=== PATIENT | female | born 1950 ===

== ENCOUNTER 2018-04-22 02:09 | Inpatient (IN) | payer MEDICARE ==
[2018-04-22 02:57] LABS: MEAN CELL VOLUME 92.6 fl (81.0-99.0); MEAN CORPUSCULAR HEMOGLOBIN 30.3 pg (27.0-31.0); MEAN CORPUSCULAR HGB CONC 32.7 g/dL (33.0-37.0); RBC 4.28 Mil/uL (3.80-5.20); RED CELL DISTRIBUTION WIDTH 13.6 % (11.5-14.5); WHITE BLOOD COUNT 6.4 K/uL (4.8-10.8)
[2018-04-22 03:00] LABS: INR 0.9; PROTHROMBIN TIME 10.6 Seconds (9.8-13.1)
[2018-04-22 03:03] LABS: PARTIAL THROMBOPLASTIN TIME 30.5 Seconds (25.6-37.1)
[2018-04-22 03:05] LABS: ALB/GLOB RATIO 1.1 (1.0-2.1); ALT/SGPT 20 U/L (9-52); AST/SGOT 25 U/L (14-36); BILIRUBIN,DIRECT 0.2 mg/ml (0.0-0.4); BLOOD UREA NITROGEN 15 mg/dl (7-17); CALCIUM 9.3 mg/dL (8.4-10.2); GFR NON-AFRICAN AMERICAN > 60
[2018-04-22] MEDS ORDERED: Sodium Chloride 0.9% 50 ML IV ONE (03:23)
[2018-04-22] MEDS ORDERED: Iohexol 300 100 ML IJ ONE (03:23)
--- NOTE | 2018-04-22 03:25 | ED PDOC ---
HPI: General Adult Time Seen by Provider: 04/22/18 02:31 Chief Complaint (Nursing): GI Problem Chief Complaint (Provider): GI problem History Per: Patient History/Exam Limitations: no limitations Current Symptoms Are (Timing): Still Present Additional Complaint(s): 66 year old female, with no past medical history, presents with bright red blood per rectum and blood clots. Patient reports 3 episodes that happened less than 1 hour prior to arrival. She denies abdominal pain, dizziness, light headedness, or palpitations. She states she feels well otherwise. PMD: none provided Past Medical History Reviewed: Historical Data, Nursing Documentation, Vital Signs Vital Signs: Last Vital Signs Temp 98.5 F 04/22/18 02:20 Pulse 86 04/22/18 03:15 Resp 16 04/22/18 02:20 BP 164/91 H 04/22/18 02:39 Pulse Ox 96 04/22/18 02:39 - Medical History PMH: No Chronic Diseases - Surgical History Surgical History: No Surg Hx - Family History Family History: States: Unknown Family Hx - Home Medications Home Medications: Ambulatory Orders Medication Instructions Recorded No Known Home Med 04/22/18 - Allergies Allergies/Adverse Reactions: Allergies Allergy/AdvReac Type Severity Reaction Status Date / Time Penicillins Allergy ANAPHYLAXIS Verified 04/22/18 02:20 Review of Systems ROS Statement: Except As Marked, All Systems Reviewed And Found Negative Cardiovascular: Negative for: Palpitations Gastrointestinal: Positive for: Other (Bright red blood per rectum and blood clots). Negative for: Abdominal Pain Neurological: Negative for: Dizziness, Other (light headedness) Physical Exam - Reviewed Nursing Documentation Reviewed: Yes Vital Signs Reviewed: Yes - Physical Exam Appears: Positive for: Non-toxic, No Acute Distress Head Exam: Positive for: ATRAUMATIC, NORMOCEPHALIC Skin: Positive for: Normal Color, Warm, Dry Eye Exam: Positive for: Normal appearance Neck: Positive for: Normal, Painless ROM Cardiovascular/Chest: Positive for: Regular Rate, Rhythm Respiratory: Positive for: Normal Breath Sounds. Negative for: Wheezing, Respiratory Distress Gastrointestinal/Abdominal: Positive for: Normal Exam, Soft. Negative for: Ten derness Rectal: Positive for: Other (scant bright red blood) Neurologic/Psych: Positive for: Alert, Oriented. Negative for: Motor/Sensory Deficits Comments: Folder Tier was nurse Nata Delaney. - Laboratory Results Result Diagrams: 04/22/18 05:20 04/22/18 02:50 - ECG O2 Sat by Pulse Oximetry: 96 (RA) Pulse Ox Interpretation: Normal - Critical Care Total Time (In Min): 30 Documented Critical Care: Time excludes all time spent performint seperately billable procedures Medical Decision Making Medical Decision Making: A/P: Rectal bleeding in otherwise well appearing 66 y/o female. No signs of hemorrhoids or fissures. Possibly related to diverticulosis, angiodysplasia, ulcer disease, among others not listed. Initial Plan: --CT abd/pelvis --BMP --Liver profile stat --CBC --PTT --Prothrombin time --Protonix 40mg IV 04:47 CT abd/pelvis COMMENTS: 1 cm benign simple cyst of the right hepatic lobe. 0.8 Cm adherent sludge, noncalcified stone versus polyp in the fundus of the gallbladder. Diffuse colonic diverticulosis. Mild apparent thickening of the distal transverse and descending colon. The liver is of uniform attenuation without mass or defect. There is no intra or extrahepatic biliary ductal dilatation. The spleen is normal. The pancreas is of normal contour and attenuation characteristics. There is no evidence of adrenal mass. Both kidneys demonstrate prompt and equal nephrograms. The kidneys are normal in size, shape and configuration. There is no evidence of renal or ureteral mass. No renal or ureteral calculi are identified. There is no hydroureter or hydronephrosis. No evidence for appendicitis. No evidence for small or large bowel obstruction. There is no evidence of abdominal ascites or lymphadenopathy. There is no evidence of intrinsic or extrinsic bladder mass. There is no pelvic ascites or lymphadenopathy. Images of the lung bases show no evidence of pleural or parenchymal mass. There are no pleural effusions. The bony structures are free of lytic or blastic lesions. IMPRESSION: 1 cm benign simple cyst of the right hepatic lobe. 0.8 Cm adherent sludge, noncalcified stone versus polyp in the fundus of the gallbladder. Diffuse colonic diverticulosis. Mild apparent thickening of the distal transverse and descending colon. Inf ectious/inflammatory versus neoplastic pathology. 5:00 --Patient re-evaluated at bedside --Patient complaining now of dizziness, lightheadedness --Patient became diffusely diaphoretic, pale, and BP dropped to 100/60 and became tachycardic --2nd IV line placed and 3rd CBC drawn, Type and Screen sent, patient's consented --Dr. Shaw aware of patient, recommends transfusion --Dr. Branch aware, will admit to ICU --Will obtain surgical consult as per recommendations of Dr. Shaw -- Scribe Attestation: Documented by Yohan Keller acting as a scribe for Syed Canseco MD. Provider Scribe Attestation: All medical record entries made by the Scribe were at my direction and personally dictated by me. I have reviewed the chart and agree that the record accurately reflects my personal performance of the history, physical exam, medical decision making, and the department course for this patient. I have also personally directed, reviewed, and agree with the discharge instructions and disposition. Disposition - Clinical Impression Clinical Impression: GI bleed - Patient ED Disposition Is Patient to be Admitted: Yes - Disposition Disposition Time: 05:00 Condition: SERIOUS
[2018-04-22 05:04] LABS: HEMOGLOBIN 12.3 g/dL (12.0-16.0); MEAN CELL VOLUME 92.1 fl (81.0-99.0); MEAN CORPUSCULAR HGB CONC 33.7 g/dL (33.0-37.0); RBC 3.97 Mil/uL (3.80-5.20); RED CELL DISTRIBUTION WIDTH 13.7 % (11.5-14.5); WHITE BLOOD COUNT 8.9 K/uL (4.8-10.8)
[2018-04-22] MEDS ORDERED: Sodium Chloride 0.9% 1,000 ML IV STA (05:22)
[2018-04-22 05:45] LABS: HEMOGLOBIN 11.6 g/dL (12.0-16.0); MEAN CELL VOLUME 92.2 fl (81.0-99.0); MEAN CORPUSCULAR HEMOGLOBIN 30.5 pg (27.0-31.0); MEAN CORPUSCULAR HGB CONC 33.1 g/dL (33.0-37.0); RBC 3.8 Mil/uL (3.80-5.20); RED CELL DISTRIBUTION WIDTH 13.5 % (11.5-14.5); WHITE BLOOD COUNT 8.9 K/uL (4.8-10.8)
--- NOTE | 2018-04-22 06:05 | CP.PCM.CON ---
History of Present Illness - History of Present Illness History of Present Illness: SURGERY CONSULT NOTE FOR DR. ALBRIGHT Reason for consult: GI bleed 66F presents to the emergency department for GI bleed which started yesterday. Patient states she never had this type of bleeding before. She states the pain was not associated with bowel movements. She denies nausea, vomiting, fevers or chills. She denies any abdominal pain. She states she had multiple episodes of blood per rectum. While in the emergency department she had one episode of hypotension which resolved with fluid bolus. PMH: denies PSH: hysterectomy Social: denies tobacco, alcohol, illicit drug Allergies: Penicillins Past Patient History - Past Social History Smoking Status: Never Smoked - PSYCHIATRIC Hx Substance Use: No - SURGICAL HISTORY Hx Surgeries: Yes Hx Hysterectomy: Yes - ANESTHESIA Hx Anesthesia: Yes Hx Anesthesia Reactions: No Hx Malignant Hyperthermia: No Meds Allergies/Adverse Reactions: Allergies Allergy/AdvReac Type Severity Reaction Status Date / Time Penicillins Allergy ANAPHYLAXIS Verified 04/22/18 02:20 - Medications Medications: Current Medications Sodium Chloride (Sodium Chloride 0.9%) 1,000 mls @ 1,000 mls/hr IV .Q1H ST[facility] Stop: 04/22/18 06:21 Last Admin: 04/22/18 05:34 Dose: 1,000 mls/hr Physical Exam - Constitutional Appears: Non-toxic, No Acute Distress - Eye Exam Eye Exam: EOMI, PERRL - ENT Exam ENT Exam: Mucous Membranes Moist - Respiratory Exam Respiratory Exam: Clear to Auscultation Bilateral, NORMAL BREATHING PATTERN - Cardiovascular Exam Cardiovascular Exam: REGULAR RHYTHM, +S1, +S2 - GI/Abdominal Exam GI & Abdominal Exam: Soft. absent: Distended, Firm, Guarding, Rebound, Rigid, Tenderness - Rectal Exam Rectal Exam: Bloody Stool. absent: Hemorrhoids, Fecal Impaction - Extremities Exam Extremities exam: Negative for: tenderness - Neurological Exam Neurological exam: Alert, Oriented x3 - Skin Skin Exam: Dry, Intact, Normal Color, Warm Results - Vital Signs Recent Vital Signs: Last Vital Signs Temp 98.5 F 04/22/18 02:20 Pulse 80 04/22/18 05:55 Resp 16 04/22/18 05:55 BP 130/76 04/22/18 05:55 Pulse Ox 95 04/22/18 05:55 - Labs Result Diagrams: 04/22/18 05:20 04/22/18 02:50 Labs: Laboratory Results - last 24 hr 04/22/18 04/22/18 04/22/18 02:50 02:50 02:50 WBC 6.4 RBC 4.28 Hgb 13.0 Hct 39.6 MCV 92.6 MCH 30.3 MCHC 32.7 L RDW 13.6 Plt Count 245 PT 10.6 INR 0.9 APTT 30.5 Sodium 138 Potassium 4.2 Chloride 106 Carbon Dioxide 28 Anion Gap 8 L BUN 15 Creatinine 0.6 L Est GFR ( Amer) > 60 Est GFR (Non-Af Amer) > 60 Random Glucose 112 H Calcium 9.3 Total Bilirubin 0.3 Direct Bilirubin 0.2 AST 25 ALT 20 Alkaline Phosphatase 83 Total Protein 7.6 Albumin 4.0 Globulin 3.6 Albumin/Globulin Ratio 1.1 04/22/18 04/22/18 04:58 05:20 WBC 8.9 8.9 RBC 3.97 3.80 Hgb 12.3 11.6 L Hct 36.6 35.0 MCV 92.1 92.2 MCH 31.0 30.5 MCHC 33.7 33.1 RDW 13.7 13.5 Plt Count 239 251 PT INR APTT Sodium Potassium Chloride Carbon Dioxide Anion Gap BUN Creatinine Est GFR ( Amer) Est GFR (Non-Af Amer) Random Glucose Calcium Total Bilirubin Direct Bilirubin AST ALT Alkaline Phosphatase Total Protein Albumin Globulin Albumin/Globulin Ratio Assessment & Plan - Assessment and Plan (Free Text) Assessment: 66F with GI bleed from colonic diverticulosis Plan: - NPO - IVF - Monitor for continues blood per rectum - Monitor CBC - GI consult, recommend colonoscopy - Will continue to follow patient Discussed with Dr. Nuria Rodriguez, PGY3
--- NOTE | 2018-04-22 06:17 | CP.PCM.HP ---
History of Present Illness - History of Present Illness History of Present Illness: PMD: None Chief Complaint: Bright red blood per rectum The patient was seen and examined in the ED with her present HPI: This is a 66 years old female with no significant past medical hx comes with sudden unset of non tender bloody stool with clots. She had 3 episodes at home in less than one hour and continued in the ED. She referred mild dizziness later in the ED. but no SOB, chest Pain, palpitation, abdominal pain nor previous episode of blood in stool. PMH: No chronic disease PSH: Hysterectomy; Appendectomy; dehiscence of surgical wound SH: No Illegal drug use; no Alcohol; never smoked; Live with FH: State: No known family Hx Allergies: NKDA Medication: Denies Use Present on Admission - Present on Admission Any Indicators Present on Admission: No History of DVT/PE: No History of Uncontrolled Diabetes: No Urinary Catheter: No Decubitus Ulcer Present: No Review of Systems - Constitutional Constitutional: absent: Anorexia, Chills, Fever, Headache, Lethargy - EENT Eyes: absent: Blurred Vision, Diplopia, Floaters, Requires Corrective Lenses Ears: absent: Decreased Hearing, Ear Discharge, Ear Pain, Tinnitus Nose/Mouth/Throat: absent: Epistaxis, Nasal Congestion, Sinus Pain, Sinus Pressure - Cardiovascular Cardiovascular: absent: Chest Pain, Dyspnea, Edema - Respiratory Respiratory: absent: Cough, Dyspnea, Wheezing, Stridor - Gastrointestinal Gastrointestinal: Hematochezia. absent: Abdominal Pain, Constipation, Diarrhea, Nausea, Vomiting - Genitourinary Genitourinary: absent: Dysuria, Flank Pain, Hematuria, Urinary Frequency - Musculoskeletal Musculoskeletal: absent: Arthralgias, Muscle Cramps, Muscle Weakness, Myalgias - Integumentary Integumentary: absent: Pruritus, Rash, Skin Ulcer, Sores, Striae, Swelling - Neurological Neurological: Dizziness. absent: Confusion, Focal Weakness, Weakness - Psychiatric Psychiatric: absent: Anxiety, Depression, Panic Attacks - Endocrine Endocrine: absent: Palpitations, Polydipsia, Polyphagia, Polyuria - Hematologic/Lymphatic Hematologic: absent: Easy Bleeding, Easy Bruising Past Patient History - Past Medical History & Family History Past Medical History?: No - Past Social History Smoking Status: Never Smoked Chewing Tobacco Use: No Cigar Use: No Alcohol: None Drugs: Denies, Inhalants Home Situation {Lives}: With Family - CARDIAC Hx Cardiac Disorders: No - PULMONARY Hx Respiratory Disorders: No - NEUROLOGICAL Hx Neurological Disorder: No - HEENT Hx HEENT Problems: No - RENAL Hx Chronic Kidney Disease: No - ENDOCRINE/METABOLIC Hx Endocrine Disorders: No - HEMATOLOGICAL/ONCOLOGICAL Hx Blood Disorders: No - INTEGUMENTARY Hx Dermatological Problems: No - MUSCULOSKELETAL/RHEUMATOLOGICAL Hx Musculoskeletal Disorders: Yes Other/Comment: Pain to right shoulder - GENITOURINARY/GYNECOLOGICAL Hx Genitourinary Disorders: No - PSYCHIATRIC Hx Psychophysiologic Disorder: No Hx Substance Use: No - SURGICAL HISTORY Hx Surgeries: Yes Hx Appendectomy: Yes Hx Hysterectomy: Yes - ANESTHESIA Hx Anesthesia: Yes Hx Anesthesia Reactions: No Hx Malignant Hyperthermia: No Meds Allergies/Adverse Reactions: Allergies Allergy/AdvReac Type Severity Reaction Status Date / Time Penicillins Allergy ANAPHYLAXIS Verified 04/22/18 02:20 Physical Exam - Constitutional Appears: No Acute Distress - Head Exam Head Exam: ATRAUMATIC, NORMAL INSPECTION, NORMOCEPHALIC - Eye Exam Eye Exam: EOMI Pupil Exam: NORMAL ACCOMODATION, PERRL - ENT Exam ENT Exam: Mucous Membranes Moist, Normal Exam, Normal External Ear Exam - Neck Exam Neck exam: Positive for: Full Rom, Normal Inspection. Negative for: Lymphadenopathy, Tenderness - Respiratory Exam Respiratory Exam: Clear to Auscultation Bilateral. absent: Rales, Rhonchi, Wheezes - Cardiovascular Exam Cardiovascular Exam: REGULAR RHYTHM, RRR, +S1, +S2. absent: Gallop - GI/Abdominal Exam GI & Abdominal Exam: Normal Bowel Sounds, Soft. absent: Mass, Organomegaly, Tenderness - Rectal Exam Rectal Exam: Bloody Stool - Extremities Exam Extremities exam: Positive for: full ROM, normal inspection. Negative for: calf tenderness, pedal edema - Back Exam Back exam: NORMAL INSPECTION. absent: CVA tenderness (L), CVA tenderness (R) - Neurological Exam Neurological exam: Alert, CN II-XII Intact, Oriented x3, Reflexes Normal - Psychiatric Exam Psychiatric exam: Normal Affect, Normal Mood - Skin Skin Exam: Dry, Intact, Normal Color, Warm Results - Vital Signs Recent Vital Signs: Last Vital Signs Temp 98.5 F 04/22/18 02:20 Pulse 75 04/22/18 06:10 Resp 21 04/22/18 06:10 BP 139/70 04/22/18 06:10 Pulse Ox 99 04/22/18 06:10 - Labs Result Diagrams: 04/22/18 05:20 04/22/18 02:50 Labs: Laboratory Results - last 24 hr 04/22/18 04/22/18 04/22/18 02:50 02:50 02:50 WBC 6.4 RBC 4.28 Hgb 13.0 Hct 39.6 MCV 92.6 MCH 30.3 MCHC 32.7 L RDW 13.6 Plt Count 245 PT 10.6 INR 0.9 APTT 30.5 Sodium 138 Potassium 4.2 Chloride 106 Carbon Dioxide 28 Anion Gap 8 L BUN 15 Creatinine 0.6 L Est GFR ( Amer) > 60 Est GFR (Non-Af Amer) > 60 Random Glucose 112 H Calcium 9.3 Total Bilirubin 0.3 Direct Bilirubin 0.2 AST 25 ALT 20 Alkaline Phosphatase 83 Total Protein 7.6 Albumin 4.0 Globulin 3.6 Albumin/Globulin Ratio 1.1 04/22/18 04/22/18 04:58 05:20 WBC 8.9 8.9 RBC 3.97 3.80 Hgb 12.3 11.6 L Hct 36.6 35.0 MCV 92.1 92.2 MCH 31.0 30.5 MCHC 33.7 33.1 RDW 13.7 13.5 Plt Count 239 251 PT INR APTT Sodium Potassium Chloride Carbon Dioxide Anion Gap BUN Creatinine Est GFR ( Amer) Est GFR (Non-Af Amer) Random Glucose Calcium Total Bilirubin Direct Bilirubin AST ALT Alkaline Phosphatase Total Protein Albumin Globulin Albumin/Globulin Ratio - Imaging and Cardiology CT scan - abdomen Status: Report reviewed by me Additional comment: CT abd/pelvis COMMENTS: 1 cm benign simple cyst of the right hepatic lobe. 0.8 Cm adherent sludge, noncalcified stone versus polyp in the fundus of the gallbladder. Diffuse colonic diverticulosis. Mild apparent thickening of the distal transverse and descending colon. The liver is of uniform attenuation without mass or defect. There is no intra or extrahepatic biliary ductal dilatation. The spleen is normal. The pancreas is of normal contour and attenuation characteristics. There is no evidence of adrenal mass. Both kidneys demonstrate prompt and equal nephrograms. The kidneys are normal in size, shape and configuration. There is no evidence of renal or ureteral mass. No renal or ureteral calculi are identified. There is no hydroureter or hydronephrosis. No evidence for appendicitis. No evidence for small or large bowel obstruction. There is no evidence of abdominal ascites or lymphadenopathy. There is no evidence of intrinsic or extrinsic bladder mass. There is no pelvic ascites or lymphadenopathy. Images of the lung bases show no evidence of pleural or parenchymal mass. There are no pleural effusions. The bony structures are free of lytic or blastic lesions. IMPRESSION: 1 cm benign simple cyst of the right hepatic lobe. 0.8 Cm adherent sludge, noncalcified stone versus polyp in the fundus of the gallbladder. Diffuse colonic diverticulosis. Mild apparent thickening of the distal transverse and descending colon. Infectious/inflammatory versus neoplastic pathology. Assessment & Plan - Assessment and Plan (Free Text) Assessment: #. Lower GI bleed Plan: 66 years old female with no significant past medical hx comes with sudden unset of non tender bloody stool with clots. She had 3 episodes at home in less than one hour and continued in the ED. She referred mild dizziness later in the ED. but no SOB, chest Pain, palpitation, abdominal pain nor previous episode of blood in Stool. #. Lower GI bleed etiology unclear. Consider internal hemorrhoides but most likely caused by Diverticular bleed CT Abd/pelvis: Diffuse Colonic Diverticulosis - Consult Dr Shaw GI - Consult Surgery Dr Quiñones - Admit to ICU - H&H Q4 hours - Type and cross PRBC Transfuse if HB falls below 10g/dl - IV Fluid Ringer,s Lactate #. DVT Prophylaxis with SCD #. Code Status: Full: - Date & Time Date: 04/22/18 Time: 06:17
[2018-04-22] MEDS: Lactated Ringer's 1,000 ML IV SCH ×3 (07:29→23:49)
--- NOTE | 2018-04-22 10:21 | CT ---
Date of service: 04/22/2018 PROCEDURE: CT Abdomen and Pelvis with and without intravenous contrast HISTORY: rectal bleeding COMPARISON: None. TECHNIQUE: Axial images of the abdomen were obtained in the pre contrast, portal venous and delayed phases of enhancement. Coronal and sagittal reformats were generated. Contrast dose: Radiation dose: Total exam DLP = 419.5 mGy-cm. This CT exam was performed using one or more of the following dose reduction techniques: Automated exposure control, adjustment of the mA and/or kV according to patient size, and/or use of iterative reconstruction technique. FINDINGS: LOWER THORAX: Unremarkable. LIVER: Unremarkable. No gross lesion or ductal dilatation. GALLBLADDER AND BILE DUCTS: 8 millimeter gallbladder polyp versus adherent stone PANCREAS: Unremarkable. No gross lesion or ductal dilatation. SPLEEN: Unremarkable. ADRENALS: Unremarkable. No mass. KIDNEYS AND URETERS: Unremarkable. No hydronephrosis. No solid mass. VASCULATURE: Unremarkable. No aortic aneurysm. No aortic atherosclerotic calcification or mural plaque present. BOWEL: Sigmoid colon diverticulosis. No obstruction. No gross mural thickening. APPENDIX: Normal appendix. PERITONEUM: Unremarkable. No free fluid. No free air. LYMPH NODES: Unremarkable. No enlarged lymph nodes. BLADDER: Unremarkable. REPRODUCTIVE: Unremarkable. BONES: No acute fracture. OTHER FINDINGS: None. IMPRESSION: 8 millimeter gallbladder polyp versus adherent stone sigmoid colon diverticulosis.
[2018-04-22 14:05] LABS: HEMOGLOBIN 10.3 g/dL (12.0-16.0); MEAN CELL VOLUME 92.4 fl (81.0-99.0); MEAN CORPUSCULAR HEMOGLOBIN 30.4 pg (27.0-31.0); MEAN CORPUSCULAR HGB CONC 32.9 g/dL (33.0-37.0); RBC 3.39 Mil/uL (3.80-5.20); RED CELL DISTRIBUTION WIDTH 13.4 % (11.5-14.5); WHITE BLOOD COUNT 6.7 K/uL (4.8-10.8)
[2018-04-22 14:16] LABS: ALBUMIN 2.9 g/dL (3.5-5.0); ALT/SGPT 27 U/L (9-52); AST/SGOT 21 U/L (14-36); BLOOD UREA NITROGEN 11 mg/dl (7-17); CALCIUM 8.4 mg/dL (8.4-10.2); GFR NON-AFRICAN AMERICAN > 60
--- NOTE | 2018-04-22 14:19 | CP.PCM.CON ---
History of Present Illness - History of Present Illness History of Present Illness: 66 yo female coming to ER after bleeding bright red blood per rectum. In ER had another episode of blleding and her P dropped. Review of Systems - Constitutional Constitutional: absent: Chills - EENT Eyes: absent: Blurred Vision Ears: absent: Ear Pain Nose/Mouth/Throat: absent: Epistaxis - Cardiovascular Cardiovascular: absent: Chest Pain - Respiratory Respiratory: absent: Cough - Gastrointestinal Gastrointestinal: Hematochezia. absent: Abdominal Pain - Genitourinary Genitourinary: absent: Change in Urinary Stream Past Patient History - Past Medical History & Family History Past Medical History?: No - Past Social History Smoking Status: Never Smoked - CARDIAC Hx Cardiac Disorders: No - PULMONARY Hx Respiratory Disorders: No - NEUROLOGICAL Hx Neurological Disorder: No - HEENT Hx HEENT Problems: No - RENAL Hx Chronic Kidney Disease: No - ENDOCRINE/METABOLIC Hx Endocrine Disorders: No - HEMATOLOGICAL/ONCOLOGICAL Hx AIDS: No Hx Human Immunodeficiency Virus (HIV): No - INTEGUMENTARY Hx Dermatological Problems: No - MUSCULOSKELETAL/RHEUMATOLOGICAL Hx Falls: No - GASTROINTESTINAL Hx Gastrointestinal Disorders: No - GENITOURINARY/GYNECOLOGICAL Hx Genitourinary Disorders: No - PSYCHIATRIC Hx Substance Use: No - SURGICAL HISTORY Hx Surgeries: Yes Hx Appendectomy: Yes Hx Hysterectomy: Yes - ANESTHESIA Hx Anesthesia: Yes Hx Anesthesia Reactions: No Hx Malignant Hyperthermia: No Meds Allergies/Adverse Reactions: Allergies Allergy/AdvReac Type Severity Reaction Status Date / Time Penicillins Allergy ANAPHYLAXIS Verified 04/22/18 02:20 - Medications Medications: Current Medications Lactated Ringer's (Lactated Ringer's) 1,000 mls @ 125 mls/hr IV .Q8H [facility] Last Admin: 04/22/18 07:29 Dose: 125 mls/hr Desmopressin Acetate 21 mcg/ (Sodium Chloride) 55.25 mls @ 110.5 mls/hr IVPB ONCE ONE Stop: 04/22/18 15:29 Pantoprazole Sodium (Protonix Inj) 40 mg IVP Q12 [facility] Physical Exam - Head Exam Head Exam: ATRAUMATIC - Eye Exam Eye Exam: Normal appearance Pupil Exam: PERRL - ENT Exam ENT Exam: Normal Exam - Neck Exam Neck exam: Positive for: Full Rom - Respiratory Exam Respiratory Exam: Clear to Auscultation Bilateral - Cardiovascular Exam Cardiovascular Exam: REGULAR RHYTHM, +S1, +S2 - GI/Abdominal Exam GI & Abdominal Exam: Normal Bowel Sounds, Soft. absent: Tenderness Results - Vital Signs Recent Vital Signs: Last Vital Signs Temp 98 F 04/22/18 12:00 Pulse 68 04/22/18 12:00 Resp 14 04/22/18 12:00 BP 119/67 04/22/18 12:00 Pulse Ox 100 04/22/18 12:00 - Labs Result Diagrams: 04/22/18 13:57 04/22/18 02:50 Labs: Laboratory Results - last 24 hr 04/22/18 04/22/18 04/22/18 02:50 02:50 02:50 WBC 6.4 RBC 4.28 Hgb 13.0 Hct 39.6 MCV 92.6 MCH 30.3 MCHC 32.7 L RDW 13.6 Plt Count 245 PT 10.6 INR 0.9 APTT 30.5 Sodium 138 Potassium 4.2 Chloride 106 Carbon Dioxide 28 Anion Gap 8 L BUN 15 Creatinine 0.6 L Est GFR ( Amer) > 60 Est GFR (Non-Af Amer) > 60 Random Glucose 112 H Calcium 9.3 Total Bilirubin 0.3 Direct Bilirubin 0.2 AST 25 ALT 20 Alkaline Phosphatase 83 Total Protein 7.6 Albumin 4.0 Globulin 3.6 Albumin/Globulin Ratio 1.1 Blood Type Blood Type Confirm Antibody Screen Crossmatch BBK History Checked 04/22/18 04/22/18 04/22/18 04:58 05:20 05:20 WBC 8.9 8.9 RBC 3.97 3.80 Hgb 12.3 11.6 L Hct 36.6 35.0 MCV 92.1 92.2 MCH 31.0 30.5 MCHC 33.7 33.1 RDW 13.7 13.5 Plt Count 239 251 PT INR APTT Sodium Potassium Chloride Carbon Dioxide Anion Gap BUN Creatinine Est GFR ( Amer) Est GFR (Non-Af Amer) Random Glucose Calcium Total Bilirubin Direct Bilirubin AST ALT Alkaline Phosphatase Total Protein Albumin Globulin Albumin/Globulin Ratio Blood Type O POSITIVE Blood Type Confirm Antibody Screen Negative Crossmatch See Detail BBK History Checked No verified bt 04/22/18 04/22/18 08:05 13:57 WBC 6.7 RBC 3.39 L Hgb 10.3 L Hct 31.3 L MCV 92.4 MCH 30.4 MCHC 32.9 L RDW 13.4 Plt Count 199 PT INR APTT Sodium Potassium Chloride Carbon Dioxide Anion Gap BUN Creatinine Est GFR ( Amer) Est GFR (Non-Af Amer) Random Glucose Calcium Total Bilirubin Direct Bilirubin AST ALT Alkaline Phosphatase Total Protein Albumin Globulin Albumin/Globulin Ratio Blood Type Blood Type Confirm O POSITIVE Antibody Screen Crossmatch BBK History Checked - Imaging and Cardiology CT scan - abdomen Status: Report reviewed by me Assessment & Plan (1) GI bleed Assessment and Plan: Likely diverticular bleed. No current active bleed given. Will give DDAVP. Surgery is involved. follow clinically. Status: Acute
[2018-04-22] MEDS ORDERED: Desmopressin 4 mcg/ml Inj (1 ml) IVPB ONE (14:30)
--- NOTE | 2018-04-22 14:41 | CARD ---
APPROVED REPORT Date of service: 04/22/2018 EKG Measurement Heart [id number] <Conclusion> Normal sinus rhythm Nonspecific T wave abnormality Abnormal ECG
--- NOTE | 2018-04-23 07:18 | CP.PCM.PN ---
Subjective - Date & Time of Evaluation Date of Evaluation: 04/23/18 Time of Evaluation: 07:16 - Subjective Subjective: SURGERY NOTE FOR DR. ALBRIGHT 66F seen and examined at bedside. Patient denies abdominal pain, denies nausea, vomiting, she continues to deny bloody bowel movements. Objective - Vital Signs/Intake and Output Vital Signs (last 24 hours): Temp Pulse Resp BP Pulse Ox 98.4 F 62 12 114/54 L 100 04/23/18 00:00 04/23/18 04:00 04/23/18 04:00 04/23/18 04:00 04/23/18 04:00 Intake and Output: 04/23/18 04/23/18 06:59 18:59 Intake Total 1450 Balance 1450 - Medications Medications: Current Medications Lactated Ringer's (Lactated Ringer's) 1,000 mls @ 125 mls/hr IV .Q8H [facility] Last Admin: 04/22/18 23:49 Dose: 125 mls/hr Pantoprazole Sodium (Protonix Inj) 40 mg IVP Q12 [facility] Last Admin: 04/22/18 20:37 Dose: 40 mg - Labs Labs: 04/22/18 13:57 04/22/18 13:57 PT 10.6 Seconds (9.8-13.1) 04/22/18 02:50 INR 0.9 04/22/18 02:50 APTT 30.5 Seconds (25.6-37.1) 04/22/18 02:50 - Constitutional Appears: Non-toxic, No Acute Distress - Respiratory Exam Respiratory Exam: Clear to Ausculation Bilateral, NORMAL BREATHING PATTERN - Cardiovascular Exam Cardiovascular Exam: REGULAR RHYTHM, +S1, +S2 - GI/Abdominal Exam GI & Abdominal Exam: Soft. absent: Distended, Firm, Guarding, Rigid, Tenderness, Rebound - Neurological Exam Neurological Exam: Alert, Awake - Skin Skin Exam: Dry, Intact, Normal Color, Warm Assessment and Plan - Assessment and Plan (Free Text) Assessment: 66F with GI bleed resolving Plan: - recommend colonoscopy - GI bleeding scan - NPO - IVF - Continue to monitor for further bleed Further recs discuss with Dr. Nuria Rodriguez, PGY3
--- NOTE | 2018-04-23 08:53 | CP.PCM.PN ---
Subjective - Date & Time of Evaluation Date of Evaluation: 04/23/18 Time of Evaluation: 08:51 - Subjective Subjective: Patient appears well. No observed GI bleeding. Objective - Vital Signs/Intake and Output Vital Signs (last 24 hours): Temp Pulse Resp BP Pulse Ox 98.3 F 70 17 139/65 95 04/23/18 08:00 04/23/18 08:00 04/23/18 08:00 04/23/18 08:00 04/23/18 08:00 Intake and Output: 04/23/18 04/23/18 06:59 18:59 Intake Total 1450 Balance 1450 - Medications Medications: Current Medications Lactated Ringer's (Lactated Ringer's) 1,000 mls @ 125 mls/hr IV .Q8H [facility] Last Admin: 04/22/18 23:49 Dose: 125 mls/hr Pantoprazole Sodium (Protonix Inj) 40 mg IVP Q12 [facility] Last Admin: 04/22/18 20:37 Dose: 40 mg - Labs Labs: 04/22/18 13:57 04/22/18 13:57 PT 10.6 Seconds (9.8-13.1) 04/22/18 02:50 INR 0.9 04/22/18 02:50 APTT 30.5 Seconds (25.6-37.1) 04/22/18 02:50 - Head Exam Head Exam: ATRAUMATIC - Eye Exam Eye Exam: Normal appearance - ENT Exam ENT Exam: Normal Exam - Respiratory Exam Respiratory Exam: Clear to Ausculation Bilateral - Cardiovascular Exam Cardiovascular Exam: REGULAR RHYTHM, +S1, +S2 - GI/Abdominal Exam GI & Abdominal Exam: Soft, Normal Bowel Sounds. absent: Tenderness Assessment and Plan (1) GI bleed Assessment & Plan: Likely diverticular bleed. No active bleeding. Will do flex sig later today to try and differentiate between right and left sided bleed. Status: Acute
[2018-04-23 10:05] LABS: HEMOGLOBIN 9.8 g/dL (12.0-16.0); MEAN CELL VOLUME 92.9 fl (81.0-99.0); MEAN CORPUSCULAR HEMOGLOBIN 30.8 pg (27.0-31.0); MEAN CORPUSCULAR HGB CONC 33.2 g/dL (33.0-37.0); RBC 3.16 Mil/uL (3.80-5.20); RED CELL DISTRIBUTION WIDTH 13.7 % (11.5-14.5); WHITE BLOOD COUNT 5.4 K/uL (4.8-10.8)
[2018-04-23 10:14] LABS: BLOOD UREA NITROGEN 10 mg/dl (7-17); CALCIUM 8.4 mg/dL (8.4-10.2); GFR NON-AFRICAN AMERICAN > 60
--- NOTE | 2018-04-23 10:46 | CP.PCM.PN ---
<Lashanda Keller - Last Filed: 04/23/18 13:45> Subjective - Date & Time of Evaluation Date of Evaluation: 04/23/18 Time of Evaluation: 10:43 - Subjective Subjective: The patient was seen and examined at bedside. Patient denies any abdominal tenderness. Denies any acute overnight events. Admits to bloody bowel movement. Denies weakness. Denies SOB, chest Pain, palpitation, abdominal pain. Objective - Vital Signs/Intake and Output Vital Signs (last 24 hours): Temp Pulse Resp BP Pulse Ox 98.3 F 70 17 139/65 95 04/23/18 08:00 04/23/18 08:00 04/23/18 08:00 04/23/18 08:00 04/23/18 08:00 Intake and Output: 04/23/18 04/23/18 06:59 18:59 Intake Total 1450 125 Balance 1450 125 - Medications Medications: Current Medications Lactated Ringer's (Lactated Ringer's) 1,000 mls @ 125 mls/hr IV [facility]H [facility] Last Admin: 04/22/18 23:49 Dose: 125 mls/hr Pantoprazole Sodium (Protonix Inj) 40 mg IVP Q12 [facility] Last Admin: 04/23/18 09:48 Dose: 40 mg Sodium Phosphate (Fleet Enema) 135 ml MO ONCE ONE Stop: 04/23/18 11:01 Sodium Phosphate (Fleet Enema) 135 ml MO ONCE ONE Stop: 04/23/18 13:01 - Labs Labs: 04/23/18 09:15 04/23/18 09:15 PT 10.6 Seconds (9.8-13.1) 04/22/18 02:50 INR 0.9 04/22/18 02:50 APTT 30.5 Seconds (25.6-37.1) 04/22/18 02:50 - Constitutional Appears: Well, Non-toxic, No Acute Distress - Head Exam Head Exam: ATRAUMATIC, NORMOCEPHALIC - Eye Exam Eye Exam: EOMI, Normal appearance Pupil Exam: NORMAL ACCOMODATION - ENT Exam ENT Exam: Mucous Membranes Moist - Respiratory Exam Respiratory Exam: Clear to Ausculation Bilateral, NORMAL BREATHING PATTERN - Cardiovascular Exam Cardiovascular Exam: REGULAR RHYTHM, +S1, +S2 - GI/Abdominal Exam GI & Abdominal Exam: Normal Bowel Sounds - Neurological Exam Neurological Exam: Alert, Awake - Psychiatric Exam Psychiatric exam: Normal Affect Assessment and Plan - Assessment and Plan (Free Text) Assessment: 66 years old female with no significant past medical hx comes with sudden unset of non tender bloody stool with clots. She had 3 episodes at home in less than one hour and continued in the ED. She referred mild dizziness later in the ED. but no SOB, chest Pain, palpitation, abdominal pain nor previous episode of blood in Stool. Plan: Lower GI bleed etiology unclear. Consider internal hemorrhoides but most likely caused by Diverticular bleed -CT Abd/pelvis: Diffuse Colonic Diverticulosis - Consult Dr Shaw GI - recommendations appreciated; flex sig later today (04/23) - Consult Surgery Dr Quiñones; recommendations appreciated; - GI bleeding scan: ordered - H&H 13.0/39.6(on admission)-- 9.8/29.4(today) - Type and cross PRBC Transfuse if HB falls below 10g/dl - IV Fluid Ringers Lactate DVT Prophylaxis -SCD Diet: -NPO Code Status: -Full <Sita Ang - Last Filed: 04/23/18 17:28> Objective - Vital Signs/Intake and Output Vital Signs (last 24 hours): Temp Pulse Resp BP Pulse Ox 98.2 F 80 18 134/67 96 04/23/18 16:00 04/23/18 16:00 04/23/18 16:00 04/23/18 16:00 04/23/18 16:00 Intake and Output: 04/23/18 04/23/18 06:59 18:59 Intake Total 1450 625 Output Total 200 Balance 1450 425 - Medications Medications: Current Medications Lactated Ringer's (Lactated Ringer's) 1,000 mls @ 125 mls/hr IV [facility]H [facility] Last Admin: 04/22/18 23:49 Dose: 125 mls/hr Pantoprazole Sodium (Protonix Inj) 40 mg IVP Q12 [facility] Last Admin: 04/23/18 09:48 Dose: 40 mg - Labs Labs: 04/23/18 09:15 04/23/18 09:15 PT 10.6 Seconds (9.8-13.1) 04/22/18 02:50 INR 0.9 04/22/18 02:50 APTT 30.5 Seconds (25.6-37.1) 04/22/18 02:50 Attending/Attestation - Attestation I have personally seen and examined this patient.: Yes I have fully participated in the care of the patient.: Yes I have reviewed all pertinent clinical information, including history, physical exam and plan: Yes Notes (Text): Lower GI Bleed poss Diverticular Bleed Acute Blood Loss Anemia - monitor CBC - Plan for Flexible Sigmoidoscopy by Dr Shaw today
[2018-04-23] MEDS: Lactated Ringer's 1,000 ML IV SCH (14:44)
--- NOTE | 2018-04-23 15:29 | NM ---
Date of service: 04/22/2018 PROCEDURE: Nuclear medicine gastrointestinal bleeding scan. HISTORY: lower GI bleed COMPARISON: None available. TECHNIQUE: 4ccof patient blood was withdrawn and mixed with 24.8mCi of technetium ultra tagged. Flow phase images were acquired at 2 sec intervals for 40 sec. Subsequently, images of the abdomen and pelvis were obtained in the anterior projection at 1 min intervals over a period of 60 min. FINDINGS: No abnormal extravasation of tracer was observed throughout the exam to indicate active bleeding within or outside the gastrointestinal tract. Physiologic activity was seen in the heart, liver, spleen and blood vessels. IMPRESSION: No evidence of active gastrointestinal bleeding.
[2018-04-24 04:47] VITALS: TEMP 97.6
[2018-04-24 05:38] LABS: HEMOGLOBIN 9.8 g/dL (12.0-16.0); MEAN CELL VOLUME 91.6 fl (81.0-99.0); MEAN CORPUSCULAR HGB CONC 33.9 g/dL (33.0-37.0); RBC 3.15 Mil/uL (3.80-5.20); RED CELL DISTRIBUTION WIDTH 13.3 % (11.5-14.5); WHITE BLOOD COUNT 6.9 K/uL (4.8-10.8)
[2018-04-24 05:43] LABS: BLOOD UREA NITROGEN 9 mg/dl (7-17); CALCIUM 8.5 mg/dL (8.4-10.2); GFR NON-AFRICAN AMERICAN > 60
[2018-04-24 06:20] VITALS: BP 120/61; RESP 21; O2SAT 95
[2018-04-24] MEDS ORDERED: Potassium Chloride 20 mEq ER Tab PO ONE (08:15)
[2018-04-24 10:08] VITALS: PULSE 74
--- NOTE | 2018-04-24 10:47 | CP.PCM.DIS ---
<Lashanda Keller - Last Filed: 04/24/18 12:43> Provider - Provider Date of Admission: 04/22/18 05:37 Attending physician: Zana Branch Consults: 04/22/18 05:34 Gastroenterology Consult Stat Comment: Consulting Provider: Sebastian Teresa Consulting Physician: Sebastian Teresa Reason for Consult: GI Bleed 04/22/18 05:44 Surgery [General Surgery Consult] Stat Comment: Consulting Provider: Singh Quiñones Consulting Physician: Singh Quiñones Reason for Consult: abd pain, BI bleed Time Spent in preparation of Discharge (in minutes): 30 Diagnosis - Discharge Diagnosis (1) GI bleed Status: Acute Hospital Course - Lab Results Lab Results: Micro Results 04/22/18 18:18 Naris MRSA Culture (Admit) - Final MRSA NOT DETECTED Most Recent Lab Values WBC 6.9 K/uL (4.8-10.8) 04/24/18 04:35 RBC 3.15 Mil/uL (3.80-5.20) L 04/24/18 04:35 Hgb 9.8 g/dL (12.0-16.0) L 04/24/18 04:35 Hct 28.9 % (34.0-47.0) L 04/24/18 04:35 MCV 91.6 fl (81.0-99.0) 04/24/18 04:35 MCH 31.0 pg (27.0-31.0) 04/24/18 04:35 MCHC 33.9 g/dL (33.0-37.0) 04/24/18 04:35 RDW 13.3 % (11.5-14.5) 04/24/18 04:35 Plt Count 200 K/uL (130-400) 04/24/18 04:35 PT 10.6 Seconds (9.8-13.1) 04/22/18 02:50 INR 0.9 04/22/18 02:50 APTT 30.5 Seconds (25.6-37.1) 04/22/18 02:50 Sodium 133 mmol/l (132-148) 04/24/18 04:35 Potassium 3.5 MMOL/L (3.6-5.0) L 04/24/18 04:35 Chloride 100 mmol/L (98-107) 04/24/18 04:35 Carbon Dioxide 26 mmol/L (22-30) 04/24/18 04:35 Anion Gap 11 (10-20) 04/24/18 04:35 BUN 9 mg/dl (7-17) 04/24/18 04:35 Creatinine 0.6 mg/dl (0.7-1.2) L 04/24/18 04:35 Est GFR ( Amer) > 60 04/24/18 04:35 Est GFR (Non-Af Amer) > 60 04/24/18 04:35 Random Glucose 95 mg/dL (65-105) 04/24/18 04:35 Calcium 8.5 mg/dL (8.4-10.2) 04/24/18 04:35 Phosphorus 4.2 mg/dl (2.5-4.5) 04/22/18 13:57 Magnesium 2.0 MG/DL (1.6-2.3) 04/22/18 13:57 Total Bilirubin 0.5 mg/dl (0.2-1.3) 04/22/18 13:57 Direct Bilirubin 0.2 mg/ml (0.0-0.4) 04/22/18 02:50 AST 21 U/L (14-36) 04/22/18 13:57 ALT 27 U/L (9-52) 04/22/18 13:57 Alkaline Phosphatase 72 U/L (38-126) 04/22/18 13:57 Total Protein 5.9 G/DL (6.3-8.2) L 04/22/18 13:57 Albumin 2.9 g/dL (3.5-5.0) L D 04/22/18 13:57 Globulin 3.0 gm/dL (2.2-3.9) 04/22/18 13:57 Albumin/Globulin Ratio 1.0 (1.0-2.1) 04/22/18 13:57 Blood Type O POSITIVE 04/22/18 05:20 Blood Type Confirm O POSITIVE 04/22/18 08:05 Antibody Screen Negative 04/22/18 05:20 Crossmatch See Detail 04/22/18 05:20 BBK History Checked No verified bt 04/22/18 05:20 - Hospital Course Hospital Course: 66 years old female with no significant past medical hx comes with sudden unset of non tender bloody stool with clots. She had 3 episodes at home in less than one hour and continued in the ED. She referred mild dizziness later in the ED. but no SOB, chest Pain, palpitation, abdominal pain nor previous episode of blood in Stool. Bleeding scan negative. CT Abd/pelvis showed diffuse Colonic Diverticulosis. Dr teresa performed a sig flex and no active bleeding was noted. General surgery was consulted and no intervention at this time. Hemoglobin dropped to 9.8 from 13.0. Patient discharged multivitamins and omeprazole. Patient will follow up with Dr. Teresa and primary care doctor. Discharge Exam - Head Exam Head Exam: ATRAUMATIC, NORMOCEPHALIC - Eye Exam Eye Exam: EOMI, Normal appearance, PERRL Pupil Exam: NORMAL ACCOMODATION, PERRL - ENT Exam ENT Exam: Mucous Membranes Moist - Respiratory Exam Respiratory Exam: NORMAL BREATHING PATTERN - Cardiovascular Exam Cardiovascular Exam: REGULAR RHYTHM, +S1, +S2 - GI/Abdominal Exam GI & Abdominal Exam: Normal Bowel Sounds - Neurological Exam Neurological exam: Alert Discharge Plan - Discharge Medications Prescriptions: Multivitamin [Multi-Vitamin Daily] 1 each PO DAILY #30 tablet Omeprazole 40 mg PO DAILY #30 capsule.dr - Follow Up Plan Condition: STABLE Disposition: HOME/ ROUTINE Instructions: High Fiber Diet, Diverticulosis (DC), Gastrointestinal Bleeding (DC) Referrals: Singh Quiñones MD [Staff Provider] - Sebastian Teresa MD [Staff Provider] - <AngJackieSitadelilah Urena - Last Filed: 04/24/18 15:32> Provider - Provider Date of Admission: 04/22/18 05:37 Attending physician: Zana Branch Consults: 04/22/18 05:34 Gastroenterology Consult Stat Comment: Consulting Provider: Sebastian Teresa Consulting Physician: Sebastian Teresa Reason for Consult: GI Bleed 04/22/18 05:44 Surgery [General Surgery Consult] Stat Comment: Consulting Provider: Singh Quiñones Consulting Physician: Singh Quiñones Reason for Consult: abd pain, BI bleed Hospital Course - Lab Results Lab Results: Micro Results 04/22/18 18:18 [facility]aris MRSA Culture (Admit) - Final MRSA NOT DETECTED Most Recent Lab Values WBC 6.9 K/uL (4.8-10.8) 04/24/18 04:35 RBC 3.15 Mil/uL (3.80-5.20) L 04/24/18 04:35 Hgb 9.8 g/dL (12.0-16.0) L 04/24/18 04:35 Hct 28.9 % (34.0-47.0) L 04/24/18 04:35 MCV 91.6 fl (81.0-99.0) 04/24/18 04:35 MCH 31.0 pg (27.0-31.0) 04/24/18 04:35 MCHC 33.9 g/dL (33.0-37.0) 04/24/18 04:35 RDW 13.3 % (11.5-14.5) 04/24/18 04:35 Plt Count 200 K/uL (130-400) 04/24/18 04:35 PT 10.6 Seconds (9.8-13.1) 04/22/18 02:50 INR 0.9 04/22/18 02:50 APTT 30.5 Seconds (25.6-37.1) 04/22/18 02:50 Sodium 133 mmol/l (132-148) 04/24/18 04:35 Potassium 3.5 MMOL/L (3.6-5.0) L 04/24/18 04:35 Chloride 100 mmol/L (98-107) 04/24/18 04:35 Carbon Dioxide 26 mmol/L (22-30) 04/24/18 04:35 Anion Gap 11 (10-20) 04/24/18 04:35 BUN 9 mg/dl (7-17) 04/24/18 04:35 Creatinine 0.6 mg/dl (0.7-1.2) L 04/24/18 04:35 Est GFR ( Amer) > 60 04/24/18 04:35 Est GFR (Non-Af Amer) > 60 04/24/18 04:35 Random Glucose 95 mg/dL (65-105) 04/24/18 04:35 Calcium 8.5 mg/dL (8.4-10.2) 04/24/18 04:35 Phosphorus 4.2 mg/dl (2.5-4.5) 04/22/18 13:57 Magnesium 2.0 MG/DL (1.6-2.3) 04/22/18 13:57 Total Bilirubin 0.5 mg/dl (0.2-1.3) 04/22/18 13:57 Direct Bilirubin 0.2 mg/ml (0.0-0.4) 04/22/18 02:50 AST 21 U/L (14-36) 04/22/18 13:57 ALT 27 U/L (9-52) 04/22/18 13:57 Alkaline Phosphatase 72 U/L (38-126) 04/22/18 13:57 Total Protein 5.9 G/DL (6.3-8.2) L 04/22/18 13:57 Albumin 2.9 g/dL (3.5-5.0) L D 04/22/18 13:57 Globulin 3.0 gm/dL (2.2-3.9) 04/22/18 13:57 Albumin/Globulin Ratio 1.0 (1.0-2.1) 04/22/18 13:57 Blood Type O POSITIVE 04/22/18 05:20 Blood Type Confirm O POSITIVE 04/22/18 08:05 Antibody Screen Negative 04/22/18 05:20 Crossmatch See Detail 04/22/18 05:20 BBK History Checked No verified bt 04/22/18 05:20 Attending/Attestation - Attestation I have personally seen and examined this patient.: Yes I have fully participated in the care of the patient.: Yes I have reviewed all pertinent clinical information, including history, physical exam and plan: Yes Notes (Text): Lower GI Bleed probably Diverticular Bleed Acute Blood Loss Anemia - no further GI bleeding - H/H stable -Flexible Sigmoidoscopy done by Dr Teresa did not show any active bleeding , Diverticulosis noted - Bleeding Scan : negative
== END 2018-04-24 11:00 | disposition home or self-care (01) | DRG 378 ==
LOC: H.ER 02:09 → EDBD 05:37 → H.ERHOLD 05:37 → H.ICU/CCU 08:22
PROVIDERS: ADMIT Internal Medicine; ATTEND Internal Medicine
PROC: 0DJD8ZZ Inspection of Lower Intestinal Tract, Via Natural or Artificial Opening Endoscopic (ICD-10-PCS; principal; 2018-04-23 14:30)
DX: K57.31 Diverticulosis of large intestine without perforation or abscess with bleeding (principal); D62 Acute posthemorrhagic anemia; K76.89 Other specified diseases of liver; K64.8 Other hemorrhoids; Z88.0 Allergy status to penicillin